=== PATIENT | female | born 1960 | race Caucasian/White ===

== ENCOUNTER 2017-09-29 16:25 | Emergency (ER) | payer MEDICAID ==
[~2017-09-29] VITALS: Ht 162.6 cm; Wt 83.9 kg
[2017-09-29 20:08] VITALS: BP 138/84
== END 2017-09-29 20:08 | disposition home or self-care (01) ==
LOC: ED 16:25
DX: M54.6 Pain in thoracic spine (principal); I10 Essential (primary) hypertension; E89.0 Postprocedural hypothyroidism
CPT/HCPCS: J1885